=== PATIENT | female | born 1985 | race Caucasian/White ===

== ENCOUNTER 2017-12-10 12:03 | Emergency (ER) | payer OTHER ==
[2017-12-10] MEDS: DIPHENHYDRAMINE 25 MG CAP PO (12:29)
[2017-12-10] MEDS: predniSONE 20 MG TAB PO (12:31)
[2017-12-10] MEDS: FAMOTIDINE 20 MG TAB PO (12:31)
== END 2017-12-10 14:01 | disposition home or self-care (01) ==
LOC: E/R 12:03
DX: T78.2XXA Anaphylactic shock, unspecified, initial encounter (principal)
CPT/HCPCS: 99291; J7512

== ENCOUNTER 2018-11-18 14:07 | Emergency (ER) | payer OTHER ==
[2018-11-18] MEDS: LORAZEPAM 1 MG TAB PO (17:10)
[2018-11-18 17:11] LABS: URINE BLOOD (Dip) POC Negative (NEGATIVE); URINE GLUCOSE (Dip) POC Negative (NEGATIVE); URINE KETONES (Dip) POC Negative (NEGATIVE); URINE LEUKOCYTE EST (Dip) POC Negative (NEGATIVE); URINE NITRITE (Dip) POC Negative (NEGATIVE); URINE TOTAL PROTEIN POC Negative (NEGATIVE)
== END 2018-11-18 19:01 | disposition home or self-care (01) ==
LOC: FTE 14:07
DX: R20.2 Paresthesia of skin (principal); R00.2 Palpitations
CPT/HCPCS: 71045; 76856; 81003; 81025; 93005; 99285-25